=== PATIENT | male | born 1990 | race Caucasian/White ===

== ENCOUNTER → 2020-09-13 11:52 | Outpatient (CLI) | payer OTHER, SELFPAY ==
--- NOTE | ~2020-09-13 | US_ITS ---
US abdomen limited DATE: 09/13/2020 12:13 INDICATION: Elevated liver enzymes TECHNIQUE: Real-time imaging of liver, pancreas, gallbladder COMPARISON: None FINDINGS: There is fatty change of the liver. No hepatic space-occupying mass lesion is evident. Norm al hepatopedal portal venous flow direction. The pancreas is not well demonstrated due to interference from overlying bowel gas. No gallstones or gallbladder wall thickening or pericholecystic fluid collection is evident. The comm on bile duct measures 5 mm, normal. Negative sonographic Carlin's sign. IMPRESSION: Hepatic steatosis Limited evaluation of pancreas due to interference from overlying bowel gas Negative gallbladder Reviewed, dictated and finalized at [facility]. Reviewed, dictated and finalized at [facility].
== END ==
PROVIDERS: Visit Provider Student in an Organized Health Care Education/Training Program
DX: R74.8 Abnormal levels of other serum enzymes (principal); K76.0 Fatty (change of) liver, not elsewhere classified
CPT/HCPCS: 76705